=== PATIENT | female | born 1955 | race Caucasian/White ===

== ENCOUNTER → 2016-07-24 | Outpatient (CLI) | payer BC ==
--- NOTE | 2016-07-24 12:27 | Diagnostic Imaging Report ---
PROCEDURE: US Abdomen, limited. TECHNIQUE: Multiple realtime grayscale images were obtained over the abdomen in various projections. INDICATION: Chronic hip pain There are no previous studies for for comparison. According patient she has had a prior MRI which suggested bilateral inguinal adenopathy. Neither that exam nor the report from that exam are available at this time. Both inguinal regions were evaluated. There are a few lymph nodes in the right groin. The largest measures 2.2 x 0.9 x 1.1 CM. On the left there are also several lymph nodes with the largest measuring 4.6 x 1.3 x 0.8 CM. In addition there is another rounded hypoechoic area with internal echoes measuring 1.3 x 1.1 x 1.2 CM. The normal fatty hilum seen in other lymph nodes in this region is not identified with this finding. I not certain if this is related to a lymph node whose parenchyma has been replaced by infection/inflammation or whether this is a slightly complicated cyst. It would be less likely that the parenchyma of this lymph node has been replaced by neoplasm. IMPRESSION: 1. There are lymph nodes in each groin as described above. There is also a 1.1 x 1.3 x 1.2 CM hypoechoic area in the left groin. This is of uncertain etiology. 2. If the adenopathy does not diminish over a short period of time (2-4 weeks), then a repeat ultrasound exam would be recommended for further study. Dictated by: Dictated on workstation # [id number]
== END ==
LOC: RAD 09:36
PROVIDERS: ATTEND Surgery
DX: M25.551 Pain in right hip (principal); M25.552 Pain in left hip; R59.0 Localized enlarged lymph nodes
CPT/HCPCS: 76705